=== PATIENT | female | born 1975 | race Caucasian/White ===

== ENCOUNTER 2017-06-28 05:07 | Emergency (ER) | payer BC, OTHER ==
[~2017-06-28] VITALS: Ht 172.7 cm; Wt 64.0 kg
[~2017-06-28 05:07] MED LIST: CITA10TA8 PO; HYDR-2758 PO
--- NOTE | 2017-06-28 05:56 | PHYS DOC ---
Past Medical History Past Medical History: Anxiety, Other Additional Past Medical Histor: back pain; panic attacks Past Surgical History: Tubal ligation, Other Additional Past Surgical Histo: bone spur Alcohol Use: None Drug Use: None Adult General Chief Complaint Chief Complaint: Palpitations HPI HPI Patient is a 41 year old female who presents with complaint of shoulder pain and palpitations. Patient states that she awoke with the symptoms at approximately 4:30 AM this morning. Patient states that she has had similar symptoms in the past and had Holter monitoring completed with no abnormal heart rhythms found. This was ordered by her primary care provider at Dr. Calderon's office. 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 Patient states that she has history of anxiety and had been on citalopram therapy but has not taken this in several months as she states that she has not been having any significant issues with anxiety at this time. Patient states that she has been noticing pain off and on in both shoulders, stating that radiates down into both hands. Patient describes the pain as tingling. Patient denies any associated substernal chest pain, shortness of breath, nausea, or vomiting. Patient does note that she has had intermittent "fluttering" in her chest. Patient denies pain at this time. Patient has not taken any medications for her symptoms. Review of Systems Review of Systems Constitutional: Denies fever or chills [] Eyes: Denies change in visual acuity, redness, or eye pain [] HENT: Denies nasal congestion or sore throat [] Respiratory: Denies cough or shortness of breath [] Cardiovascular: Palpitations, denies substernal chest pain or edema[] GI: Denies abdominal pain, nausea, vomiting, bloody stools or diarrhea [] : Denies dysuria or hematuria [] Musculoskeletal: Intermittent shoulder pain[] Integument: Denies rash or skin lesions [] Neurologic: Denies headache, focal weakness or sensory changes [] Current Medications Current Medications Current Medications Medications (Trade) Dose Ordered Sig/Mike Start Time Stop Time Status Last Admin Dose Admin Aspirin (Children'S Aspirin) 324 mg 1X ONCE 06/28/17 06:00 06/28/17 06:01 DC 06/28/17 06:00 324 MG Lorazepam (Ativan) 0.5 mg 1X ONCE 06/28/17 06:00 9/20/17 06:01 DC 06/28/17 06:00 0.5 MG Sodium Chloride 500 ml @ 500 mls/hr 1X ONCE 06/28/17 06:00 06/28/17 06:59 06/28/17 05:59 500 MLS/HR Allergies Allergies Allergies Coded Allergies Type Severity Reaction Last Updated Verified Sulfa (Sulfonamide Antibiotics) Allergy Intermediate Rash 02/03/16 Yes Physical Exam Physical Exam Constitutional: Alert, afebrile, no acute distress. [] HENT: Normocephalic, atraumatic, bilateral external ears normal, oropharynx moist, no oral exudates, nose normal. [] Eyes: PERRLA, EOMI, conjunctiva normal, no discharge. [] Neck: Normal range of motion, no tenderness, supple, no stridor. [] Cardiovascular:Heart rate regular rhythm, no murmur [] Lungs & Thorax: Bilateral breath sounds clear to auscultation [] Abdomen: Bowel sounds normal, soft, no tenderness, no masses, no pulsatile masses. [] Skin: Warm, dry, no erythema, no rash. [] Back: No tenderness, no CVA tenderness. [] Extremities: No tenderness, no cyanosis, no clubbing, ROM intact, no edema. [] Neurologic: Alert and oriented X 3, normal motor function, normal sensory function, no focal deficits noted. [] Current Patient Data Vital Signs Vital Signs Date Time Temp Pulse Resp B/P (MAP) Pulse Ox O2 Delivery O2 Flow Rate FiO2 06/28/17 05:18 98.2 74 18 119/75 (90) 99 Room Air 98.2 EKG EKG Interpreted by me: Heart rate 72, sinus rhythm, normal intervals, normal axis, no acute ST/T-wave abnormalities present[] Radiology/Procedures Radiology/Procedures Two-view chest x-ray interpreted by me: No infiltrates, no effusions, normal cardiac silhouette[] Course & Med Decision Making Course & Med Decision Making Pertinent Labs and Imaging studies reviewed. (See chart for details) Patient's EKG and chest x-ray appear normal. The patient's symptoms are likely due to acute stress reaction. Lab work at this time is pending at time of sign out. If patient's blood work appears normal, the patient can follow-up with her primary doctor in 2 days for reevaluation. I would also recommend that the patient be referred to Dr. Arredondo of cardiology for further outpatient workup for her palpitations. Care of patient signed out to Dr. Sanabria at 0605. Bhakti Disclaimer Erikon Disclaimer This electronic medical record was generated, in whole or in part, using a voice recognition dictation system. Departure Departure Impression: Primary Impression: Intermittent palpitations Referrals: JOSE CALDERON MD (PCP) PILY LUO MD Jun 28, 2017 05:56
[2017-06-28] MEDS ORDERED: IV NORMAL SALINE 500ML BAG 500 ML IV ONE (06:00)
[2017-06-28] MEDS ORDERED: ASPIRIN CHEWABLE 81 MG TABLET. PO ONE (06:00)
[2017-06-28 06:02] LABS: CREATININE 0.7 mg/dL (0.6-1.0); GFR 93.2; POTASSIUM 3.4 mmol/L (3.5-5.1)
[2017-06-28 06:04] VITALS: BP 106/65
[2017-06-28 06:05] LABS: BASO # 0.1 x10^3/uL (0.0-0.2); BASO % 1 % (0-3); EOS % 3 % (0-3); HEMOGLOBIN 13.5 g/dL (12.0-15.5); LYMPH # 1.7 x10^3/uL (1.0-4.8); LYMPH % 35 % (24-48); MEAN CORPUSCULAR HEMOGLOBIN 31 pg (25-35); MEAN CORPUSCULAR HGB CONC 35 g/dL (31-37); MEAN CORPUSCULAR VOLUME 90 fL (79-100); MONO % 7 % (0-9); NEUT % 54 % (31-73); PLATELET COUNT 170 x10^3/uL (140-400); RED BLOOD COUNT 4.31 x10^6/uL (3.50-5.40); RED CELL DISTRIBUTION WIDTH 13.1 % (11.5-14.5)
--- NOTE | 2017-06-28 06:26 | EKG ---
[facility] [address] [place] [address] Test Date: 2017-06-28 Test Time: 05:15:42 Pat Name: NIXON JONES Department: Room: Gender: F Scale Operator: : 1975 Requested By: PILY LUO Order Number: [id number] Reading MD: Anushka Sprague Measurements Intervals [place] Rate: 72 P: 73 MD: 154 QRS: 54 QRSD: 82 T: 48 QT: 378 QTc: 415 Interpretive Statements SINUS RHYTHM NORMAL EKG Electronically Signed On 07-03-2017 10:47:49 CDT by Anushka Sprague
[2017-06-28 06:35] LABS: BILIRUBIN,URINE NEGATIVE (NEG); GLUCOSE,URINE NEGATIVE (NEG); NITRITE,URINE NEGATIVE (NEG); PH,URINE 5.5; PROTEIN,URINE NEGATIVE (NEG-TRACE); UROBILINOGEN,URINE 0.2 mg/dL (0.2 mg/dL)
[2017-06-28 06:37] LABS: BACTERIA,URINE FEW /HPF (0-FEW); SQUAMOUS EPITHELIAL CELL,UR FEW /LPF
--- NOTE | 2017-06-28 07:09 | RAD ---
Chest, 2 views, 06/28/2017: History: Chest discomfort The heart size and pulmonary vascularity are normal. No pulmonary infiltrates are seen. There is no evidence of pleural fluid. There are multiple calcified discs in the thoracic spine. IMPRESSION: No acute cardiopulmonary abnormality is detected.
== END 2017-06-28 07:11 | disposition home or self-care (01) ==
LOC: ER 05:07
DX: R00.2 Palpitations (principal); M25.511 Pain in right shoulder; M25.512 Pain in left shoulder; R20.2 Paresthesia of skin; F41.0 Panic disorder [episodic paroxysmal anxiety]; Z88.2 Allergy status to sulfonamides; Z79.899 Other long term (current) drug therapy
CPT/HCPCS: 36415; 71020; 80048; 81001; 81025; 83735; 84443; 85025; 93005; 96361; 96374; 99285; J2060; J7040

== ENCOUNTER → 2017-09-26 | Outpatient (CLI) | payer OTHER ==
--- NOTE | 2017-09-26 15:30 | RAD ---
DATE: 09/26/2017 EXAM: DIGITAL DIAGNOSTIC BILATERAL HISTORY: Left breast lump. COMPARISON: None This study was interpreted with the benefit of Computerized Aided Detection (CAD ). FINDINGS: Bilateral CC and MLO views were obtained. In addition, spot compression views of the left breast were obtained. Both breasts are heterogeneously dense. There is an area of the masslike density in the upper and outer aspect of the left breast at posterior depth, corresponding to the BB marker at the site of palpable abnormality. No microcalcifications are seen. The right breast is unremarkable. The axillae are unremarkable. Impression: Masslike density in the upper outer left breast. Further evaluation with ultrasound is recommended. Left breast ultrasound: Sonographic interrogation of the area of palpable abnormality in the upper outer left breast was performed. There is a hypoechoic mass at the 2:00 location of the left breast 6 cm from the nipple, corresponding to the palpable abnormality. This does appear to be lobulated. No significant posterior acoustic shadowing is seen. Minimal internal vascularity is present. This measures 2.0 x 1.7 x 2.6 cm. No other abnormalities are seen. Breast Density: HETERO The breast parenchyma is heterogeneously dense, which could reduce sensitivity of mammography. Breast parenchyma level C. IMPRESSION: Lobulated, solid hypoechoic mass at the 2:00 location of the left breast corresponding to the palpable abnormality. Tissue sampling is recommended. This would be amenable to ultrasound-guided core biopsy. BI-RADS CATEGORY: 4 SUSPICIOUS ABNORMALITY- BIOPSY SHOULD BE CONSIDERED RECOMMENDED FOLLOW-UP: BIO BIOPSY RECOMMENDED PQRS compliance statement: Patient information was entered into a reminder system with a target due date for the next mammogram. Mammography is a sensitive method for finding small breast cancers, but it does not detect them all and is not a substitute for careful clinical examination. A negative mammogram does not negate a clinically suspicious finding and should not result in delay in biopsying a clinically suspicious abnormality. "Our facility is accredited by the [employer] Mammography Program." MTDD
== END | disposition home or self-care (01) ==
LOC: MAMMO 09:59
PROVIDERS: ATTEND Family Medicine
DX: N63.21 Unspecified lump in the left breast, upper outer quadrant (principal)
CPT/HCPCS: 76641; G0204; 77066

== ENCOUNTER → 2017-10-12 | Outpatient (CLI) | payer OTHER | END | disposition home or self-care (01) | LOC: ECHO 10:32 | DX: R00.2 Palpitations (principal) | CPT/HCPCS: 93225; 93226; 93306 ==

== ENCOUNTER 2018-08-06 09:13 | Inpatient (IN) | payer OTHER ==
[2018-08-06] VITALS (10 sets, daily range): BP systolic 90–105; BP diastolic 54–72
[~2018-08-06] VITALS: Ht 172.7 cm; Wt 68.3 kg
[~2018-08-06 09:13] MED LIST changes: +ACYC400T PO; +CITA20TA6 PO; +HYDR-2762 PO; +HYDROmorphone 2 MG/ML VIAL IV PRN; +IV RINGERS,LACTATED 1000ML 1,000 ML IV SCH; +LIDOCAINE 1% PF 2 ML VIAL. ID PRN; +MORPHINE SULFATE 2 MG/ML VIAL. IV PRN; +PROCHLORPERAZINE 10 MG/2 ML VIAL. IV PRN; +fentaNYL PF VIAL 100 MCG/2 ML VIAL IV PRN
[2018-08-06] MEDS ORDERED: METHYLENE BLUE 1% 10 ML VIAL. ONE (09:25)
[2018-08-06] MEDS ORDERED: BUPIVAC MPF-EPI 0.5%-1:200000 30 ML VIAL. ONE (09:25)
[2018-08-06] MEDS ORDERED: LIDOCAINE WITH 8.4% SOD BICARB 3 ML DISP.SYRIN. INJ ONE ×2 (10:00→10:15)
[2018-08-06 10:20] LABS: U PREG PATIENT NEGATIVE (NEG)
[2018-08-06] MEDS ORDERED: ONDANSETRON PF 4 MG/2 ML VIAL. ONE ×2 (10:28→12:43)
[2018-08-06] MEDS ORDERED: FAMOTIDINE 20 MG/2 ML VIAL ONE (10:28)
[2018-08-06] MEDS ORDERED: MIDAZOLAM HCL/PF 2 MG/2 ML VIAL. ONE (10:28)
[2018-08-06] MEDS ORDERED: PROPOFOL 20 ML IV ONE (10:28)
[2018-08-06] MEDS ORDERED: LIDOCAINE 2% PF Vial for OR 5 ML VIAL. ONE (10:28)
[2018-08-06] MEDS ORDERED: DEXAMETHASONE SOD PHOS 20 MG/5 ML VIAL. ONE (10:28)
[2018-08-06] MEDS ORDERED: fentaNYL PF VIAL 100 MCG/2 ML VIAL ONE ×3 (10:28→12:54)
[2018-08-06] MEDS ORDERED: PROPOFOL 50 ML IV ONE (11:39)
[2018-08-06] MEDS ORDERED: SEVOFLURANE 61 TO 120 MINUTES. IH ONE (12:26)
[2018-08-06] MEDS ORDERED: HYDROmorphone 2 MG/ML VIAL IV PRN (12:45)
[2018-08-06] MEDS ORDERED: diphenhydrAMINE HCL 25 MG CAPSULE PO PRN (12:45)
[2018-08-06] MEDS ORDERED: ONDANSETRON PF 4 MG/2 ML VIAL. IV PRN (12:45)
[2018-08-06] MEDS ORDERED: 0.9 % SODIUM CHLORIDE 10 ML DISP.SYRIN. IV PRN (12:45)
[2018-08-06] MEDS ORDERED: PROCHLORPERAZINE 10 MG/2 ML VIAL. ONE (12:47)
[2018-08-06] MEDS ORDERED: KETOROLAC 30 MG/ML VIAL. ONE (12:49)
--- NOTE | 2018-08-06 12:52 | PDOC ---
BRIEF OPERATIVE NOTE Date: Aug 06, 2018 Pre-Op Diagnosis invasive carcinoma left breast Post-Op Diagnosis same Procedure Performed SLN biopsy lumpectomy UOQ left breast Surgeon Esteban Anesthesia Type: General Blood Loss 50cc IV Fluid 1000cc Specimens Obtained SLN peripheral tissue lumpectomy UOQ Findings negative SLN, negative margin of concern Complications none MONTANA FELDMAN MD Aug 06, 2018 12:52
[2018-08-06] MEDS: fentaNYL PF VIAL 100 MCG/2 ML VIAL IV PRN ×2 (13:06→13:30)
[2018-08-06] MEDS ORDERED: KETOROLAC 30 MG/ML VIAL. IV ONE (13:15)
--- NOTE | 2018-08-06 13:19 | OP ---
DATE OF SURGERY: 08/06/2018 PREOPERATIVE DIAGNOSIS: Invasive carcinoma, left breast. POSTOPERATIVE DIAGNOSIS: Invasive carcinoma, left breast. PROCEDURE: 1. [place] lymph node biopsy. 2. Lumpectomy upper outer quadrant, left breast. SURGEON: Lorne Feldman MD ANESTHESIA: General LMA. BLOOD LOSS: 50. INTRAVENOUS FLUIDS: 1 liter. INDICATIONS: The patient is a 43-year-old with a previously excised malignant mass, which had involved margins. She is brought for sentinel node biopsy and lumpectomy. OPERATIVE FINDINGS: The sentinel node was negative. A tissue specimen from the periphery of the process was sent and found to be negative for cancer. DESCRIPTION OF PROCEDURE: The patient was brought to the operating suite, given a general LMA and the left breast, arm and chest were prepped and draped in the usual sterile fashion. A 5 mL of Lymphazurin were injected intradermally circumareolarly in the upper outer quadrant and the breast was gently massaged. Using the C-Trak to help localize activity in the axilla, a small incision was infiltrated with local anesthetic and incised. Dissection was carried down to a blue "hot" node, which was harvested and sent to pathology. The previous upper outer quadrant incision was excised after localizing with 0.5% Marcaine with epinephrine. The skin and underlying process from the previous biopsy site was then removed en bloc. A piece of tissue from the periphery was sent for frozen section and proved to be uninvolved by the malignant process. A 19-Pashto round Jorje drain was threaded from the axillary incision down into the breast and out an inferior lateral stab wound, sewn to the skin with a silk stitch. When hemostasis was present and a correct sponge count obtained, the breast was approximated with interrupted 3-0 Vicryl, skin closed with a subcuticular 4-0 Monocryl. Sterile dressings applied. The patient awakened from her anesthetic and taken to the recovery room in satisfactory condition. LORNE FELDMAN MD DR: SUGEY/jo JOB#: [id number] / [id number]
[2018-08-06] MEDS ORDERED: POTASSIUM CL 20MEQ-0.45% NACL 1,000 ML IV SCH (14:00)
--- NOTE | 2018-08-06 15:04 | RAD ---
Indication: Left breast mass. Patient presents for sentinel node injection. TECHNIQUE: After expanding risks and benefits of the procedure, informed consent was obtained. The left breast periareolar skin was prepped and draped using usual sterile procedure. Equal aliquots of 4 parts of 1.3 mCi of technetium 99 M sulfur colloid was injected in all 4 quadrants of the breast. Findings/ impression: Uncomplicated left breast sentinel node injection. Electronically signed by: Keyon Thomason DO (08/06/2018 3:00 PM) [facility]
[2018-08-06] MEDS: oxyCODONE/APAP 5/325 1 TAB TABLET PO PRN ×3 (17:09→21:40)
[2018-08-06] MEDS: DOCUSATE SODIUM 100 MG CAPSULE. PO SCH (21:39)
[2018-08-07] MEDS: oxyCODONE/APAP 5/325 1 TAB TABLET PO PRN ×2 (03:58→08:52)
[2018-08-07 05:50] VITALS: BP 97/53
[2018-08-07] MEDS ORDERED: ENOXAPARIN 40 MG/0.4 ML SYRINGE. SQ SCH (08:00)
--- NOTE | 2018-08-07 08:31 | DISCH ---
DISCHARGE INSTRUCTIONS Condition on Discharge Condition on Discharge: Stable Activity After Discharge Activity Instructions for Disc: Activity as tolerated Lifting Instructions after Dis: No heavy lifting, No pulling or pushing, Do not lift >10 pounds Driving Instructions after Dis: Do not drive Diet after Discharge Diet after Discharge: Regular Wound Incision Care Other wound/incision instructi: drain care as instructed Contacting the after DC Call your doctor for: Concerns you may have Follow-Up Follow up with: Dr Orellana MondayAug 10, call to schedule [phone] MICHEL JUAREZ APRN Aug 07, 2018 08:31
[2018-08-07] MEDS ORDERED: OXYC1TAB7 PO (08:32)
--- NOTE | 2018-08-07 08:34 | PDOC3 ---
Discharge Summary Visit Information Date of Admission: Aug 06, 2018 Date of Discharge: Aug 07, 2018 Admitting Diagnosis: Invasive carcinoma, left breast. Final Diagnosis Invasive carcinoma, left breast. Brief Hospital Course Allergies Allergies Coded Allergies Type Severity Reaction Last Updated Verified Sulfa (Sulfonamide Antibiotics) Allergy Intermediate Rash 08/06/18 Yes Vital Signs Vital Signs Date Time Temp Pulse Resp B/P (MAP) Pulse Ox O2 Delivery O2 Flow Rate FiO2 08/07/18 05:50 97.8 63 16 97/53 (68) 97.8 08/06/18 23:03 97 Room Air 08/06/18 13:49 2 Lab Results Laboratory Tests Test 08/06/18 09:00 Urine Test Negative (NEG) Laboratory Tests Test 08/06/18 09:00 Urine Test Negative (NEG) Brief Hospital Course Ms. Whitt is a 43 old female who presented with eft breast cancer, she underwent 1. [place] lymph node biopsy. 2. Lumpectomy upper outer quadrant, left breast. Postoperatively tolerating diet, ambulating, and pain managed. Will discharge home with drain and follow up Monday Discharge Information Condition at Discharge: Stable Follow Up: Weeks Disposition/Orders: D/C to Home Scheduled Citalopram Hydrobromide (Celexa) 10 Mg Tablet, 1 TAB PO DAILY, #30 Ref 2 ( Reported) Entered as Reported by: SARA DEJESUS on 02/03/16930 Last Taken: Unknown Dose on 05/06/18 Last Action: Last Taken Edited on 945 by DONOVAN FOX Citalopram Hydrobromide (Citalopram Hbr) 20 Mg Tablet, 1 TAB PO DAILY, #30 Ref 5 (Reported) Entered as Reported by: SHANDRA ESTRELLA on 08/03/18 135 Last Action: New Order on 08/03/181354 by SHANDRA ESTRELLA Scheduled PRN Acyclovir (Acyclovir) 400 Mg Tablet, 2 TAB PO PRN TID PRN for fever blister, # 60 Ref 3 (Reported) Entered as Reported by: SHANDRA ESTRELLA on 08/03/181355 Last Taken: Unknown Dose on 08/03/18 Last Action: Last Taken Edited on 08/06/18945 by DONOVAN FOX Oxycodone Hcl/Acetaminophen (Oxycodone-Acetaminophen 5-325) 1 Each Tablet, 1 TAB PO PRN Q4HRS PRN for MILD PAIN, 1ST CHOICE, #30 Ref 0 Prescribed by: Michel Smith on 08/07/18 0832 Discontinued Medications Hydrocodone Bit/Acetaminophen (Hydrocodone-Apap 5-325 ) 1 Each Tablet, 1 TAB PO PRN Q6HRS PRN for PAIN, Ref 0 (Reported) Entered as Reported by: SARA DEJESUS on 02/03/16 0931 Last Action: Discontinued on 08/06/18 0947 by DONOVAN FOX Hydrocodone Bit/Acetaminophen (Hydrocodone-Apap 7.5-325 ) 1 Each Tablet, 1 TAB PO PRN Q4-6HRS PRN for PAIN, Ref 0 (Reported) Entered as Reported by: SHANDRA ESTRELLA on 08/03/181354 Last Action: New Order on 08/03/181354 by MICHEL RUBI APRN Aug 07, 2018 08:34
[2018-08-07] MEDS: DOCUSATE SODIUM 100 MG CAPSULE. PO SCH (08:52)
[2018-08-07 09:20] VITALS: BP 105/59
--- NOTE | 2018-08-09 10:08 | PATHOLOGY ---
[facility] Accession Number: [id number] . 01 Material submitted: . PART A: LEFT AXILLARY SENTINEL NODE - FS PART B: PERIPHERAL SPECIMAN - FS PART C: LEFT BREAST OPERATIVE UPPER OUTER QUADRANT . 01 Clinical history: . Left breast lumpectomy . 02 Diagnosis: A. Lymph node, left axillary sentinel node hot and blue: - Negative for tumor (0/1). . B. Breast tissue, peripheral specimen for frozen: - Sclerosing adenosis with associated calcifications. . C. Segment of skin and breast tissue and focally attached small foci of skeletal muscle tissue, left breast lumpectomy: - Minute focus of residual invasive high grade ductal carcinoma identified within region of previous biopsy site, measuring 1 mm. - Focus of residual invasive carcinoma approximately 0.7 cm from the closest deep and lateral margins of resection. - Previous biopsy site changes comprised of biopsy cavity with focal coagulative necrosis, fat necrosis, reactive fibrosis, and foreign body granulomatous reaction of surrounding breast tissue. - Proliferative fibrocystic changes with focal moderate ductal epithelial hyperplasia. - Sclerosing adenosis, multifocal. - Fibroadenomatous change, focal. - Microcalcifications identified in areas of fibrocystic change and sclerosing adenosis. . (JPM:mml; 08/08/18) [facility]/08/08/2018 . 02 Comment: Sections of the left breast lumpectomy show previous biopsy site changes and a minute focus of residual invasive high grade ductal carcinoma measuring 1 mm in greatest dimension. The margins of resection are negative for tumor. . The sentinel lymph node is examined at multiple levels and with an immunoperoxidase stain for AE1/AE3 which yields the following results: . AE1/AE3 (A1): Negative for tumor . Incorporating the biopsy results with the lumpectomy findings, the pathologic stage is pT2, pN0. . (JPM:mml; 08/08/18) . 02 Electronically signed: . Kristian Baxter MD, Pathologist NPI- [id number] . 01 Gross description: . A. The specimen is received fresh for intraoperative consultation and is designated "left axillary sentinel node, hot and blue". This consists of a dark blue discolored lymph node with focal attached yellow-red perinodal fibroadipose tissue. The specimen measures up to 1.8 x 1.3 x 0.9 cm. The specimen is bisected. The central portion of the lymph node is yellow and fatty. This is surrounded by a dark blue discolored rim of alysha cortex. This is submitted in its entirety for frozen section as FSA1. The tissue remaining from the frozen section is submitted for permanent sections as A1. . B. The specimen is received fresh for intraoperative consultation and is designated "peripheral specimen fresh for frozen". This consists of a segment of pale yellow mendes-white soft tissue measuring up to 1.4 x 0.8 x 0.2 cm. This is submitted for frozen section without sectioning as FSB1. The tissue remaining from frozen section is submitted for permanent sections as B1. (JPM:[facility] 08/06/2018) . C. The specimen is received in formalin, labeled "Mariann Whitt, left breast operative upper outer quadrant silk stitch at superior aspect" and consists of a 47 g breast lumpectomy specimen oriented with a black stitch (superior). The specimen is disrupted showing a previous biopsy cavity (approximately 4.5 x 3.5 x 3.0 cm). The breast tissue measures 7.3 cm S-I, 5.5 cm L-M, and 2.6 cm A-P with an anterior skin ellipse measuring 3.9 x 1.1 cm. The skin ellipse displays a well healed previous biopsy scar. The specimen is inked as follows: Superior-blue, inferior-green, lateral-yellow, medial-red, and posterior-black. It is sectioned from superior to inferior into 17 slices to reveal previous biopsy changes but no grossly identifiable residual tumor. The specimen was placed in formalin at 11:55 AM on 08/06/18 and the total formalin fixation time is greater than 6 hours but less than 72 hours. Butadiene Converter Helper alternating sections are submitted as follows: . C1: Slice 1 superior, perpendicular C2: Slice 3, intact C3-C4: Slice 5, bisected L-M C5-C7: Slice 7, bisected L-M (fragmented into 3 segments) C8-C9: Slice 9, bisected L-M (fragmented into 3 segments) C10-C12: Slice 11, bisected L-M (fragmented into 3 segments) C13-C15: Slice 13, bisected L-M (further bisected into 4 segments) C16-C17: Slice 15, bisected L-M C18-C19: Slice 17 inferior, perpendicular (SDY; 08/07/2018) . INTRAOPERATIVE CONSULTATION WITH FROZEN SECTION: A. Lymph node, "left axillary sentinel node hot and blue": - Negative for tumor. - The results are reported to Dr. Orellana in the operating room. . B. Breast tissue, peripheral specimen fresh for frozen section: - Sclerosing adenosis. No evidence of malignancy. - The results are reported to Dr. Orellana in the operating room. . (JPM:[facility] 08/06/2018) . . Intraoperative Consultation with Frozen Section performed at [facility], [address] [place] [id number]. /QTP . 02 Pathologist provided ICD-10: C50.412, N60.22, N60.12, N60.32 . 02 CPT . 212000, 108997, 254806, Q99770, 907968, 472020 Specimen Comment: A courtesy copy of this report has been sent to Specimen Comment: [phone], . Specimen Comment: Report sent to / DR CALDERON Performed at: 01 [facility] [address], [place] [id number] MD Joon Cuellar MD Phone: [phone] Performed at: [address] [id number] MD Kristian Baxter MD Phone: [phone]
== END 2018-08-07 10:30 | disposition home or self-care (01) | DRG 581 ==
LOC: SURG 09:13 → 3 NORTH 13:52
PROVIDERS: ADMIT Surgery; ATTEND Surgery
PROC: 07B60ZX Excision of Left Axillary Lymphatic, Open Approach, Diagnostic (ICD-10-PCS; principal; 2018-08-06 11:15)
PROC: 0HBU0ZZ Excision of Left Breast, Open Approach (ICD-10-PCS; 2018-08-06 11:15)
DX: C50.912 Malignant neoplasm of unspecified site of left female breast (principal); Z88.2 Allergy status to sulfonamides
CPT/HCPCS: 38792; 81025; 88305; 88307; 88331; 88342; 96374; A7015; A9541; J0690; J0780; J1100; J1170; J1650; J1885; J2001; J2250; J2405; J2704; J3010; J3490; J7120; Q9968

== ENCOUNTER 2018-09-11 08:09 | Day surgery (SDC) | payer OTHER ==
[~2018-09-11] VITALS: Ht 172.7 cm; Wt 67.1 kg
[~2018-09-11 08:09] MED LIST changes: +BUPIVAC MPF-EPI 0.5%-1:200000 30 ML VIAL. INJ ONE; +BUPIVACAINE 0.5% 50 ML VIAL. INJ ONE; +BUPIVACAINE MPF 0.5% 30 ML VIAL. IJ ONE; +HEPARIN SODIUM 5,000 UNIT in IV NORMAL SALINE 500ML BAG 500 ML IRR ONE; -HYDR-2758 PO; +HYDR-2761 PO; -HYDR-2762 PO; +HYDR-2765 PO; +NEOMY/BACITR/POLYMYXIN OINT PACKET. TP ONE; +OXYC1TAB7 PO
[2018-09-11] MEDS ORDERED: fentaNYL PF VIAL 250 MCG/5 ML VIAL ONE (08:44)
[2018-09-11] MEDS ORDERED: MIDAZOLAM HCL/PF 2 MG/2 ML VIAL. ONE (08:44)
[2018-09-11] MEDS ORDERED: PROPOFOL 20 ML IV ONE (08:44)
[2018-09-11] MEDS ORDERED: LIDOCAINE 2% PF Vial for OR 5 ML VIAL. ONE (08:44)
[2018-09-11 09:42] LABS: U PREG PATIENT NEGATIVE (NEG)
[2018-09-11] MEDS ORDERED: ONDANSETRON PF 4 MG/2 ML VIAL. ONE (10:29)
[2018-09-11] MEDS ORDERED: DEXAMETHASONE SOD PHOS 20 MG/5 ML VIAL. ONE (10:29)
[2018-09-11] MEDS ORDERED: PROCHLORPERAZINE 10 MG/2 ML VIAL. ONE (10:45)
[2018-09-11] MEDS ORDERED: fentaNYL PF VIAL 100 MCG/2 ML VIAL ONE (10:45)
[2018-09-11] MEDS ORDERED: SEVOFLURANE 31 TO 60 MINUTES. IH ONE (10:53)
--- NOTE | 2018-09-11 10:55 | DISCH ---
DISCHARGE INSTRUCTIONS Condition on Discharge Condition on Discharge: Stable Activity After Discharge Activity Instructions for Disc: Activity as tolerated, Avoid exertion Lifting Instructions after Dis: No heavy lifting Driving Instructions after Dis: Do not drive today Diet after Discharge Diet after Discharge: Regular Wound Incision Care Wound/Incision Care: Ice to area for comfort, Keep wound/cast CDI Contacting the DRNigel after DC Call your doctor for: Concerns you may have Follow-Up Follow up with: Esteban next week MONTANA FELDMAN MD Sep 11, 2018 10:55
--- NOTE | 2018-09-11 11:03 | PDOC ---
BRIEF OPERATIVE NOTE Date: Sep 11, 2018 Pre-Op Diagnosis needs venous access for chemotherapy Post-Op Diagnosis same Procedure Performed placement right subclavian power port Surgeon Esteban Anesthesia Type: General (LMA) Blood Loss 10cc IV Fluid 300cc Specimens Obtained none Findings tip of catheter in the SVC without evidence of pneumothorax Complications none MONTANA FELDMAN MD Sep 11, 2018 11:03
[2018-09-11] MEDS ORDERED: SENN1TAB70 PO (11:08)
[2018-09-11] MEDS ORDERED: HYDROcodone/APAP 7.5/325MG 1 TAB TABLET PO ONE (11:15)
--- NOTE | 2018-09-11 11:26 | RAD ---
Portable chest, 09/11/2018: HISTORY: Check Port-A-Cath placement Comparison is made to a study from 06/28/2017. A right Port-A-Cath has been inserted extending to the level of the atriocaval junction. The heart size and pulmonary vascularity are normal. No pulmonary infiltrate is seen. There is no evidence of pneumothorax or pleural fluid. IMPRESSION: 1. A right Port-A-Cath has been inserted in satisfactory position. 2. No acute cardiopulmonary abnormality is detected. Electronically signed by: Yossi Alaniz MD (09/11/2018 11:22 AM) [facility]
[2018-09-11 11:30] VITALS: BP 110/60
--- NOTE | 2018-09-11 12:57 | OP ---
DATE OF SURGERY: 09/11/2018 PREOPERATIVE DIAGNOSIS: Needs venous access for chemotherapy. POSTOPERATIVE DIAGNOSIS: Needs venous access for chemotherapy. PROCEDURE: Placement of a right subclavian PowerPort. SURGEON: Lorne Feldman MD ANESTHESIA: General LMA. ESTIMATED BLOOD LOSS: 10 mL. INTRAVENOUS FLUID: 300. INDICATIONS: The patient is a 43-year-old with triple negative breast cancer, needing access for adjuvant chemotherapy. DESCRIPTION OF PROCEDURE: The patient was brought to the operating suite, given a general LMA, and the right chest was prepped and draped in usual sterile fashion. With the bed in Trendelenburg, 0.5% plain Marcaine was infiltrated a fingerbreadth below the clavicle at the junction of the medial two-thirds, lateral third. A small incision made and a seeker needle used to access the subclavian vein. Under fluoroscopic observation, guidewire was advanced into the superior vena cava and then the needle removed. Pocket incision infiltrated with local anesthetic, incised and developed. Catheter laid on the patient's chest and with fluoroscopy as a guide, cut to an appropriate length. The catheter was then tunneled from the insertion site to the pocket site where it was attached to the reservoir, and the reservoir was seated in the pocket. Again, with the patient in Trendelenburg and with fluoroscopy for observation, the dilator and sheath were passed over the wire. The wire was removed. The dilator was removed, and the catheter was threaded through the sheath and the sheath was then removed. A good flow into and out of the catheter. Table was taken out of Trendelenburg, pocket incision closed with interrupted 3-0 Vicryl in the subcutaneous tissue. Skin incisions closed with subcuticular 4-0 Monocryl and Steri-Strips. Sterile dressings applied. Prior to dressing the wound, the port was flushed with heparinized saline. Postoperative upright chest x-ray showed the tip of the catheter to reside in superior vena cava without evidence of a pneumothorax. LORNE FELDMAN MD DR: SUGEY/jo JOB#: [id number] / [id number] WILEY Hannah MD
--- NOTE | 2018-09-14 10:12 | RAD ---
Port-A-Cath insertion under fluoroscopy 09/11/2018 CLINICAL HISTORY: Central line placement. Fluoroscopic assistance was provided during placement of a right subclavian Bscqux-p-Grxu type catheter. The total fluoroscopic time is not given. 4 digital spot radiographs of the upper chest were obtained and demonstrate interval placement of a right subclavian Npcpzl-k-Mbqo type catheter with its tip extending to overlie the superior vena cava. IMPRESSION: Fluoroscopic assistance during placement of a right subclavian Iwudzy-w-Uksu type catheter as outlined above. Electronically signed by: Bill Mosley MD (09/14/2018 10:08 AM) [id number]
== END 2018-09-11 11:44 | disposition home or self-care (01) ==
LOC: SURG 08:09
PROVIDERS: ATTEND Surgery
DX: C50.912 Malignant neoplasm of unspecified site of left female breast (principal); M19.90 Unspecified osteoarthritis, unspecified site; F41.9 Anxiety disorder, unspecified; F17.210 Nicotine dependence, cigarettes, uncomplicated; Z88.2 Allergy status to sulfonamides; Z98.51 Tubal ligation status; Z90.710 Acquired absence of both cervix and uterus
CPT/HCPCS: 36561; 71045; 77001; 81025; A7015; C1788; J0690; J0780; J1100; J1644; J2001; J2250; J2405; J2704; J3010; J3490; J7040; 36556

== ENCOUNTER → 2018-09-13 | Outpatient (CLI) | payer OTHER ==
[2018-09-11 11:30] VITALS: BP 110/60
[~2018-09-13] MED LIST changes: -BUPIVAC MPF-EPI 0.5%-1:200000 30 ML VIAL. INJ ONE; -BUPIVACAINE 0.5% 50 ML VIAL. INJ ONE; -BUPIVACAINE MPF 0.5% 30 ML VIAL. IJ ONE; -HEPARIN SODIUM 5,000 UNIT in IV NORMAL SALINE 500ML BAG 500 ML IRR ONE; -HYDROmorphone 2 MG/ML VIAL IV PRN; -IV RINGERS,LACTATED 1000ML 1,000 ML IV SCH; -LIDOCAINE 1% PF 2 ML VIAL. ID PRN; -MORPHINE SULFATE 2 MG/ML VIAL. IV PRN; -NEOMY/BACITR/POLYMYXIN OINT PACKET. TP ONE; -PROCHLORPERAZINE 10 MG/2 ML VIAL. IV PRN; +SENN1TAB70 PO; -fentaNYL PF VIAL 100 MCG/2 ML VIAL IV PRN
--- NOTE | 2018-09-13 11:45 | CARD ---
MR#: [id number] Date of Study: 09/13/2018 Ordering Physician: WILEY ESPANA, Referring Physician: WILEY ESPANA Tech: Leslie Edwards RDCS APPROVED REPORT EXAM: Two-dimensional and M-mode echocardiogram with Doppler and color Doppler. Other Information Quality : Good INDICATION LV Function:Systolic Breast Cancer-Starting Chemo 09/13/18 2D DIMENSIONS RVDd2.2 (2.9-3.5cm)Left Atrium(2D)3.0 (1.6-4.0cm) IVSd0.8 (0.7-1.1cm)Aortic Root(2D)2.5 (2.0-3.7cm) LVDd4.2 (3.9-5.9cm)LVOT Diameter2.0 (1.8-2.4cm) PWd0.8 (0.7-1.1cm)LVDs2.8 (2.5-4.0cm) FS (%) 33.7 %SV50.1 ml LVEF(%)62.8 (>50%) Aortic Valve AoV Peak Mark.122.2cm/sAoV VTI22.0cm AO Peak GR.6.0mmHgLVOT Peak Mark.107.7cm/s AO Mean GR.3mmHgAVA (VMAX)2.78cm2 RUFUS (VTI)3.00cm2 Mitral Valve MV E Smcsxxzj03.0cm/sMV DECEL OJNF530tw MV A Vlphaslr27.1cm/sE/A Ratio1.2 Tricuspid Valve TR P. Xzpnabml114ka/sRAP PGDTTNAD8igSh TR Peak Gr.46lxEmQTMM31hhMa Pulmonary Vein S1 Lmxtqvyn77.0cm/sD2 Bdfqyejt84.8cm/s LEFT VENTRICLE The left ventricle is normal size. There is normal left ventricular wall thickness. The left ventricu lar systolic function is normal and the ejection fraction is within normal range. The Ejection Fracti on is 60-65%. There is normal LV segmental wall motion. The left ventricular diastolic function and f illing is normal for age. RIGHT VENTRICLE The right ventricle is normal size. The right ventricular systolic function is normal. ATRIA The left atrium size is normal. The right atrium size is normal. The interatrial septum is intact wit h no evidence for an atrial septal defect or patent foramen ovale as noted on 2-D or Doppler imaging. AORTIC VALVE The aortic valve is normal in structure and function. Doppler and Color Flow revealed no significant aortic regurgitation. There is no significant aortic valvular stenosis. MITRAL VALVE The mitral valve is normal in structure and function. There is no evidence of mitral valve prolapse. There is no mitral valve stenosis. Doppler and Color-flow revealed trace mitral regurgitation. TRICUSPID VALVE The tricuspid valve is normal in structure and function. Doppler and Color Flow revealed physioogic t ricuspid regurgitation. The PA pressure was estimated at 18 mmHg. There is no tricuspid valve stenosi s. PULMONIC VALVE The pulmonic valve is not well visualized. Doppler and Color Flow revealed trace pulmonic valvular re gurgitation. There is no pulmonic valvular stenosis. GREAT VESSELS The aortic root is normal in size. The ascending aorta is normal in size. The IVC is normal in size a nd collapses >50% with inspiration. PERICARDIAL EFFUSION There is no evidence of significant pericardial effusion. Critical Notification Critical Value: No <Conclusion> The left ventricular systolic function is normal and the ejection fraction is within normal range. Th e Ejection Fraction is 60-65%. There is normal LV segmental wall motion. Doppler and Color Flow revealed physioogic tricuspid regurgitation. The PA pressure was estimated at 18 mmHg. Signed by : Manjit Amador, Electronically Approved : 09/13/2018 11:44:03
== END | disposition home or self-care (01) ==
LOC: ECHO 10:36
PROVIDERS: ATTEND Internal Medicine Hematology & Oncology
DX: I36.1 Nonrheumatic tricuspid (valve) insufficiency (principal); Z85.3 Personal history of malignant neoplasm of breast
CPT/HCPCS: 93306

== ENCOUNTER 2018-10-04 16:38 | Emergency (ER) | payer OTHER ==
[~2018-10-04] VITALS: Ht 172.7 cm; Wt 68.0 kg
[2018-10-04] MEDS ORDERED: ONDANSETRON PF 4 MG/2 ML VIAL. IV ONE (18:00)
[2018-10-04] MEDS ORDERED: IV NORMAL SALINE 1000ML BAG 1,000 ML IV ONE (18:00)
[2018-10-04 18:11] LABS: BILIRUBIN,URINE NEGATIVE (NEG); CLARITY,URINE CLEAR; COLOR,URINE YELLOW; NITRITE,URINE NEGATIVE (NEG); PH,URINE 5.5; PROTEIN,URINE NEGATIVE (NEG-TRACE); UROBILINOGEN,URINE 0.2 mg/dL (0.2 mg/dL)
[2018-10-04 18:15] LABS: BASO % 1 % (0-3); EOS % 0 % (0-3); HEMATOCRIT 35.9 % (36.0-47.0); HEMOGLOBIN 12.4 g/dL (12.0-15.5); LYMPH # 0.2 x10^3/uL (1.0-4.8); LYMPH % 13 % (24-48); MEAN CORPUSCULAR HEMOGLOBIN 32 pg (25-35); MEAN CORPUSCULAR HGB CONC 35 g/dL (31-37); MEAN CORPUSCULAR VOLUME 91 fL (79-100); MONO # 0.2 x10^3/uL (0.0-1.1); MONO % 14 % (0-9); NEUT # 1.1 x10^3uL (1.8-7.7); NEUT % 72 % (31-73); PLATELET COUNT 152 x10^3/uL (140-400); RED BLOOD COUNT 3.95 x10^6/uL (3.50-5.40); RED CELL DISTRIBUTION WIDTH 13.3 % (11.5-14.5)
[2018-10-04 18:17] LABS: WHITE BLOOD COUNT 1.5 x10^3/uL (4.0-11.0)
[2018-10-04 18:20] LABS: PROTHROMBIN TIME PATIENT 12.4 SEC (11.7-14.0)
[2018-10-04 18:21] LABS: BACTERIA,URINE MODERATE /HPF (0-FEW); SQUAMOUS EPITHELIAL CELL,UR FEW /LPF
[2018-10-04 18:23] LABS: CALCIUM 9.2 mg/dL (8.5-10.1); CREATININE 0.7 mg/dL (0.6-1.0); GFR 92.2; POTASSIUM 3.9 mmol/L (3.5-5.1)
[2018-10-04 18:35] LABS: ALBUMIN 3.2 g/dL (3.4-5.0); ALBUMIN/GLOBULIN RATIO 0.8 (1.0-1.7); TOTAL BILIRUBIN 0.2 mg/dL (0.2-1.0)
[2018-10-04 18:46] LABS: % BANDS 17 % (0-9); % BASOS 1 % (0-3); % LYMPHS 10 % (24-48); % METAS 1 % (0-0); % MONOS 17 % (0-10); % MYELOS 1 % (0-0); % SEGS 53 % (35-66); PLT ESTIMATE ADEQUATE (ADEQUATE); TOXIC GRANULATION MARKED
[2018-10-04 19:15] VITALS: BP 107/66
[2018-10-04] MEDS ORDERED: IOHEXOL 300 MG/ML 100ML VIAL. IV ONE (19:15)
[2018-10-04] MEDS ORDERED: CONTRAST GIVEN. MC PRN (19:30)
--- NOTE | 2018-10-04 19:37 | RAD ---
EXAM: Chest, single view. HISTORY: Fever COMPARISON: 09/19/2018 FINDINGS: A frontal view of the chest is obtained. There is no infiltrate, pleural effusion or pneumothorax. The heart is normal in size. There is a port catheter with the tip in the superior vena cava. IMPRESSION: No acute pulmonary finding. Electronically signed by: Marcela Becker MD (10/04/2018 7:32 PM) [id number]
[2018-10-04 19:38] LABS: INFLUENZA A PATIENT NEGATIVE (NEGATIVE); INFLUENZA B PATIENT NEGATIVE (NEGATIVE)
[2018-10-04] MEDS ORDERED: LEVO750T31 PO (19:52)
--- NOTE | 2018-10-04 20:16 | RAD ---
INDICATION: fever, cramping, vomiting, [id number] 75ml, prior sent COMPARISON: September 2011 TECHNIQUE: Axial CT images obtained through the abdomen and pelvis with contrast. One or more of the following individualized dose reduction techniques were utilized for this examination: 1. Automated exposure control; 2. Adjustment of the mA and/or kV according to patient size; 3. Use of iterative reconstruction technique. FINDINGS: Abdominal aorta is not grossly aneurysmal. Atherosclerotic disease is identified. No intrahepatic bile duct dilation. Hepatic parenchyma is borderline low attenuation. No peripancreatic fluid collection. Spleen mildly prominent. Subcentimeter low-density left renal lesion. Commonly seen finding and most commonly from cysts although too small to characterize. Urinary bladder is partially distended. Mild prominence of bilateral extrarenal pelvis. Uterus visualized. Small fat-containing umbilical hernia. Calcification is seen within the soft tissues of the pelvis as well as multiple phleboliths. No dilated loops of bowel to suggest obstruction. Mild fluid-filled prominence of the terminal ileum. The appendix is not well seen given the lack of contrast and loops of bowel within the region. IMPRESSION: 1. Mild prominence of the bilateral extrarenal pelvis. 2. No definite evidence of bowel obstruction. Electronically signed by: El Nicole MD (10/04/2018 8:12 PM) [facility]
--- NOTE | 2018-10-04 20:55 | PHYS DOC ---
Past Medical History Past Medical History: Anxiety, Cancer, Other Additional Past Medical Histor: back pain; panic attacks, BREAST CA Past Surgical History: Tubal ligation, Other Additional Past Surgical Histo: bone spur Alcohol Use: None Drug Use: None Adult General Chief Complaint Chief Complaint: FEVER HPI HPI Patient is a 43 year old [female who presents with nausea and fatigue chills fever of 101 for the last 2 days no dysuria no cough no vomiting chest nausea no abdominal pain gets chemo last on seven days ago. hx of breast cancer. Review of Systems Review of Systems Constitutional: Eyes: Denies change in visual acuity, redness, or eye pain [] HENT: Denies nasal congestion or sore throat [] Respiratory: Denies cough or shortness of breath [] Cardiovascular: No additional information not addressed in HPI [] GI: Denies abdominal pain, bloody stools or diarrhea [] : Denies dysuria or hematuria [] Musculoskeletal: Denies back pain or joint pain [] Integument: Denies rash or skin lesions [] Neurologic: Denies headache, focal weakness or sensory changes [] Endocrine: Denies polyuria or polydipsia [] All other systems were reviewed and found to be within normal limits, except as documented in this note. Current Medications Current Medications Current Medications Medications (Trade) Dose Ordered Sig/Mike Start Time Stop Time Status Last Admin Dose Admin Info (CONTRAST GIVEN -- Rx MONITORING) 1 each PRN DAILY PRN 10/04/18 19:30 10/06/18 19:29 Iohexol (Omnipaque 300 Mg/ml) 75 ml 1X ONCE 10/04/18 19:15 10/04/18 19:16 DC 10/04/18 19:31 75 ML Levofloxacin (Levaquin) 750 mg 1X ONCE 10/04/18 20:30 10/04/18 20:31 DC 10/04/18 20:43 750 MG Ondansetron HCl (Zofran) 4 mg 1X ONCE 10/04/18 18:00 10/04/18 18:01 DC 10/04/18 19:08 4 MG Sodium Chloride 1,000 ml @ 1,000 mls/hr 1X ONCE 10/04/18 18:00 10/04/18 18:59 DC 10/04/18 18:49 1,000 MLS/HR Allergies Allergies Allergies Coded Allergies Type Severity Reaction Last Updated Verified Sulfa (Sulfonamide Antibiotics) Allergy Intermediate Rash 09/11/18 Yes Physical Exam Physical Exam Constitutional: Well developed, well nourished, no acute distress, non-toxic appearance. [] HENT: Normocephalic, atraumatic, bilateral external ears normal, oropharynx dry , no oral exudates, nose normal. [] Eyes: PERRLA, EOMI, conjunctiva normal, no discharge. [] Neck: Normal range of motion, no tenderness, supple, no stridor. [] Cardiovascular:Heart rate regular rhythm, no murmur [] Lungs & Thorax: Bilateral breath sounds clear to auscultation [] Abdomen: Bowel sounds normal, soft, no tenderness, no masses, no pulsatile masses. [] Skin: Warm, dry, no erythema, no rash. [] Back: No tenderness, no CVA tenderness. [] Extremities: No tenderness, no cyanosis, no clubbing, ROM intact, no edema. [] Neurologic: Alert and oriented X 3, normal motor function, normal sensory function, no focal deficits noted. [] Psychologic: Affect normal, judgement normal, mood normal. [] Current Patient Data Vital Signs Vital Signs Date Time Temp Pulse Resp B/P (MAP) Pulse Ox O2 Delivery O2 Flow Rate FiO2 10/04/18 18:00 99.6 104 20 113/74 (87) 97 Room Air 99.6 Lab Values Laboratory Tests Test 10/04/18 17:20 10/04/18 17:59 10/04/18 19:12 Urine Collection Type Unknown Urine Color Yellow Urine Clarity Clear Urine pH 5.5 Urine Specific [place] 1.015 Urine Protein Negative mg/dL (NEG-TRACE) Urine Glucose (UA) Negative mg/dL (NEG) Urine Ketones (Stick) Negative mg/dL (NEG) Urine Blood Small (NEG) Urine Nitrite Negative (NEG) Urine Bilirubin Negative (NEG) Urine Urobilinogen Dipstick 0.2 mg/dL (0.2 mg/dL) Urine Leukocyte Esterase Negative (NEG) Urine RBC 3-5 /HPF (0-2) Urine WBC 1-4 /HPF (0-4) Urine Squamous Epithelial Cells Few /LPF Urine Bacteria Moderate /HPF (0-FEW) Urine Mucus Mod /LPF White Blood Count 1.5 x10^3/uL (4.0-11.0) *L Red Blood Count 3.95 x10^6/uL (3.50-5.40) Hemoglobin 12.4 g/dL (12.0-15.5) Hematocrit 35.9 % (36.0-47.0) L Mean Corpuscular Volume 91 fL (79-100) Mean Corpuscular Hemoglobin 32 pg (25-35) Mean Corpuscular Hemoglobin Concent 35 g/dL (31-37) Red Cell Distribution Width 13.3 % (11.5-14.5) Platelet Count 152 x10^3/uL (140-400) Neutrophils (%) (Auto) 72 % (31-73) Lymphocytes (%) (Auto) 13 % (24-48) L Monocytes (%) (Auto) 14 % (0-9) H Eosinophils (%) (Auto) 0 % (0-3) Basophils (%) (Auto) 1 % (0-3) Neutrophils # (Auto) 1.1 x10^3uL (1.8-7.7) L Lymphocytes # (Auto) 0.2 x10^3/uL (1.0-4.8) L Monocytes # (Auto) 0.2 x10^3/uL (0.0-1.1) Eosinophils # (Auto) 0.0 x10^3/uL (0.0-0.7) Basophils # (Auto) 0.0 x10^3/uL (0.0-0.2) Segmented Neutrophils % 53 % (35-66) Band Neutrophils % 17 % (0-9) H Lymphocytes % 10 % (24-48) L Monocytes % 17 % (0-10) H Basophils % 1 % (0-3) Metamyelocytes % 1 % (0-0) H Myelocytes % 1 % (0-0) H Toxic Granulation Marked Dohle Bodies Mod Platelet Estimate Adequate (ADEQUATE) Prothrombin Time 12.4 SEC (11.7-14.0) Prothrombin Time INR 1.0 (0.8-1.1) Maternal Serum HCG Beta Subunit < 1 mIU/mL (0-5) Sodium Level 135 mmol/L (136-145) L Potassium Level 3.9 mmol/L (3.5-5.1) Chloride Level 97 mmol/L (98-107) L Carbon Dioxide Level 28 mmol/L (21-32) Anion Gap 10 (6-14) Blood Urea Nitrogen 9 mg/dL (7-20) Creatinine 0.7 mg/dL (0.6-1.0) Estimated GFR (Cockcroft-Gault) 92.2 BUN/Creatinine Ratio 13 (6-20) Glucose Level 106 mg/dL (70-99) H Lactic Acid Level 1.3 mmol/L (0.4-2.0) Calcium Level 9.2 mg/dL (8.5-10.1) Total Bilirubin 0.2 mg/dL (0.2-1.0) Aspartate Amino Transferase (AST) 23 U/L (15-37) Alanine Aminotransferase (ALT) 123 U/L (14-59) H Alkaline Phosphatase 132 U/L (46-116) H Total Protein 7.0 g/dL (6.4-8.2) Albumin 3.2 g/dL (3.4-5.0) L Albumin/Globulin Ratio 0.8 (1.0-1.7) L Lipase 45 U/L (73-393) L Procalcitonin 0.44 ng/mL (0.00-0.10) H Influenza Type A Antigen Negative (NEGATIVE) Influenza Type B Antigen Negative (NEGATIVE) Laboratory Tests 10/04/18 17:59 Laboratory Tests 10/04/18 17:59 EKG EKG [] Radiology/Procedures Radiology/Procedures [] Impressions: IMPRESSION: 1. Mild prominence of the bilateral extrarenal pelvis. 2. No definite evidence of bowel obstruction. Electronically signed by: El Nicole MD (10/04/2018 8:12 PM) [facility] FINDINGS: A frontal view of the chest is obtained. There is no infiltrate, pleural effusion or pneumothorax. The heart is normal in size. There is a port catheter with the tip in the superior vena cava. IMPRESSION: No acute pulmonary finding. Electronically signed by: Marcela Becker MD (10/04/2018 7:32 PM) [facility] Course & Med Decision Making Course & Med Decision Making Pertinent Labs and Imaging studies reviewed. (See chart for details) []d/w eulalio. Reviewed the ANC of 1100 the fever at home of 101 otherwise reassuring lab work. He states with a stable patient in this ANC number it would be reasonable to try outpatient therapy with either Levaquin or Augmentin as long as the patient is reliable and can follow-up. In summary this is a 43-year-old female with history of breast cancer who is on chemotherapy last dose 7 days ago presenting with fever to 1012 days associated with some chills blood pressure is normal in the emergency room lab workup was essentially unremarkable mild elevation of ALT we did do a CT abdomen and pelvis abundance of caution and this was negative acute noted the urinalysis I do not think that this is a UTI nevertheless patient will be given prophylactic Levaquin anyway as per the above recommendation I did tell her about the importance of coming back here for increasing weakness or persistent symptoms otherwise call Dr. Sepulveda tomorrow to discuss when to recheck the absolute neutrophil count. She is agreeable to plan a flu swab was also negative she is given IV fluids in the emergency room and was much better at the time of discharge. Dragon Disclaimer Dragon Disclaimer This electronic medical record was generated, in whole or in part, using a voice recognition dictation system. Departure Departure Impression: Primary Impression: Fever Disposition: 01 HOME, SELF-CARE Condition: STABLE Patient Instructions: Fever, Adult, [id number] Additional Instructions: return if you have recurrent fever 100.5, and call dr sepulveda to discuss repeat ANC count in the next 48 hours. Scripts Levofloxacin (LEVAQUIN) 750 Mg Tablet 1 TAB PO DAILY, #7 TAB Prov: HODAN GILMAN MD 10/04/18 HODAN GILMAN MD Oct 04, 2018 20:55
== END 2018-10-04 20:51 | disposition home or self-care (01) ==
LOC: ER 16:38
DX: R50.9 Fever, unspecified (principal); Z85.3 Personal history of malignant neoplasm of breast
CPT/HCPCS: 36415; 71045; 74177; 80053; 81001; 83605; 83690; 84145; 84702; 85007; 85025; 85610; 87040; 87086; 87804; 96374; 99284; J2405; J7030; Q9967

== ENCOUNTER → 2018-10-25 | Outpatient (CLI) | payer OTHER ==
[2018-10-04 19:15] VITALS: BP 107/66
[~2018-10-25] MED LIST changes: +CANN100S PO; +DULO20CA PO; +LEVO750T31 PO; +VENL37.5 PO
--- NOTE | 2018-10-25 12:48 | RAD ---
Right upper extremity venous duplex study 10/25/2018 12:43 PM Clinical History: DX: Tenderness and "Lump" per PT Superior to port site IMP: Rigt arm negative for DVT-Port Line is seen at area of "Lump" per pt-No fluid collection or masses seen around port Technique: Using a combination of real time ultrasound imaging and color-flow and pulse Doppler imaging techniques, including spectral analysis, graded compression and augmentation, duplex evaluation of the deep venous system of the right lower extremity was performed. Multiple images were obtained. Findings: There is no sonographic evidence of deep venous thrombosis involving the visualized deep venous structures of the right upper extremity. Limited ultrasound of the right chest and the area of the port reservoir demonstrates no gross abnormality. Impression: No evidence of deep venous thrombosis involving the right upper extremity Electronically signed by: Adeel Lopez MD (10/25/2018 12:44 PM) [email or web address]
== END | disposition home or self-care (01) ==
LOC: US 11:25
PROVIDERS: ATTEND Internal Medicine Hematology & Oncology
DX: R22.31 Localized swelling, mass and lump, right upper limb (principal); Z85.3 Personal history of malignant neoplasm of breast
CPT/HCPCS: 93971

== ENCOUNTER → 2018-12-05 | Outpatient (CLI) | payer OTHER ==
[~2018-12-05] MED LIST changes: -DULO20CA PO
--- NOTE | 2018-12-05 12:19 | RAD ---
EXAM: Chest, 2 views. HISTORY: Breast cancer. Shortness of air. COMPARISON: 10/04/2018. FINDINGS: 2 views the chest are obtained. There is no infiltrate, pleural effusion or pneumothorax. The heart is normal in size. There is a right port catheter with the tip in the superior vena cava. IMPRESSION: No acute pulmonary finding. Electronically signed by: Marcela Becker MD (12/05/2018 12:16 PM) [facility]
== END | disposition home or self-care (01) ==
LOC: RAD 11:15
PROVIDERS: ATTEND Nurse Practitioner Adult Health
DX: C50.412 Malignant neoplasm of upper-outer quadrant of left female breast (principal); R07.89 Other chest pain; Z17.1 Estrogen receptor negative status [ER-]
CPT/HCPCS: 71046

== ENCOUNTER → 2018-12-07 | Outpatient (CLI) | payer OTHER ==
--- NOTE | 2018-12-07 17:27 | RAD ---
Examination: Whole body bone scan HISTORY: History of breast cancers, staging COMPARISON: 10/04/2018 CT abdomen pelvis FINDINGS: No evidence of focal radiotracer uptake identified in the visualized skeleton. Physiologic radiotracer uptake identified in the bilateral kidneys and the urinary bladder. IMPRESSION: No evidence of osteoblastic skeletal metastasis. Electronically signed by: Nabil Rodrigues MD (12/07/2018 5:24 PM) [email or web address]
== END | disposition home or self-care (01) ==
LOC: NM 09:30
PROVIDERS: ATTEND Internal Medicine Hematology & Oncology
DX: C50.412 Malignant neoplasm of upper-outer quadrant of left female breast (principal); G89.29 Other chronic pain; Z17.1 Estrogen receptor negative status [ER-]
CPT/HCPCS: 78306; 96374; A9503

== ENCOUNTER → 2019-04-24 | Outpatient (CLI) | payer OTHER ==
[~2019-04-24] MED LIST changes: +DULO20CA PO
--- NOTE | 2019-04-25 09:30 | RAD ---
DATE: 04/25/2019. EXAM: MAMMO JAVED NOÉ BILAT HISTORY: History of left breast cancer status post lumpectomy. COMPARISON: Previous mammogram from 2017. This study was interpreted with the benefit of Computerized Aided Detection (CAD). FINDINGS: Breast Density: HETERO The breast parenchyma Is heterogeneously dense, which could reduce sensitivity of mammography. Breast parenchyma level C. Postoperative changes from left breast lumpectomy noted. There is left breast skin thickening likely secondary to radiation therapy. No suspicious calcifications are seen. 5 mm round mass is seen in the right breast at approximately 3.6 cm from the nipple on cc view just lateral to the posterior nipple line. Couple of asymmetries are seen in the 12:00 position in the right breast. IMPRESSION: Right breast abnormality. Please see ultrasound from the same day. BI-RADS CATEGORY: 3 PROBABLE BENIGN FINDING(S-SHORT INTERVAL FOLLOW-UP SUGGESTED RECOMMENDED FOLLOW-UP: 3M 3 MONTH FOLLOW-UP. Ultrasound of the right breast recommended. PQRS compliance statement: Patient information was entered into a reminder system with a target due date for the next mammogram. Mammography is a sensitive method for finding small breast cancers, but it does not detect them all and is not a substitute for careful clinical examination. A negative mammogram does not negate a clinically suspicious finding and should not result in delay in biopsying a clinically suspicious abnormality. "Our facility is accredited by the [employer] Mammography Program."
== END | disposition home or self-care (01) ==
LOC: MAMMO 14:17
PROVIDERS: ATTEND Radiology Radiation Oncology
DX: N63.10 Unspecified lump in the right breast, unspecified quadrant (principal); N64.89 Other specified disorders of breast; Z85.3 Personal history of malignant neoplasm of breast; Z92.3 Personal history of irradiation
CPT/HCPCS: 77066; G0279; 77062

== ENCOUNTER → 2019-04-25 | Outpatient (CLI) | payer OTHER ==
--- NOTE | 2019-04-25 09:46 | RAD ---
Indication: History of left breast cancer. Abnormality seen on the right breast mammogram. COMPARISON: Same day diagnostic mammogram. technique: Limited right breast ultrasound findings: At 1:30 position approximately 4 cm from the nipple there is a small hypoechoic oval-shaped mass measuring 0.5 x 0 point for by 0.3 cm without internal vascularity. At 1:30 position approximately 5.5 cm from the nipple there is a 0.5 x 0.6 x 0.5 cm round anechoic lesion with questionable internal debris without vascularity. At 12:00 position proximally 4 cm from the nipple there is a round hypoechoic well-circumscribed lesion measuring 0.4 x 0.7 x 0.5 cm without internal vascularity. Mildly dilated duct is seen at 7:00 position approximately 1 cm from the nipple. IMPRESSION: Multiple right breast abnormalities as described above demonstrating no overtly worrisome features. These may be minimally complicated cysts. BI-RADS 3: Probably benign. Follow-up ultrasound in 3 months recommended. Electronically signed by: Keyon Thomason DO (04/25/2019 9:42 AM) [facility]
== END | disposition home or self-care (01) ==
LOC: US 08:28
PROVIDERS: ATTEND Radiology Radiation Oncology
DX: N63.12 Unspecified lump in the right breast, upper inner quadrant (principal); N64.89 Other specified disorders of breast; Z85.3 Personal history of malignant neoplasm of breast
CPT/HCPCS: 76641

== ENCOUNTER → 2019-07-26 | Outpatient (CLI) | payer OTHER ==
--- NOTE | 2019-07-26 14:49 | RAD ---
Examination: BREAST RIGHT History: Abnormal mammogram and breast ultrasound Comparison/Correlation: 04/24/2019 bilateral diagnostic mammogram, 04/25/2019 right breast ultrasound Findings: Right breast ultrasound exam was performed. Multiple cystic structures are again identified with internal echoes. At the 9:30 region, there is a 0.3 cm x 0.25 cm x 0.21 cm cyst 3 cm from the nipple. This has decreased in the interval. At the 12:00 region 4 cm from the nipple, there is a 0.5 cm x 0 point for 7 cm x 0.43 cm cyst which has decreased in the interval. At the 1:00 region 5.5 cm from the nipple, there is a 0.5 cm x 0.5 cm x 0.4 cm diameter cyst. At the 1:30 region 4 cm from the nipple, there is a 0.32 cm x 0.36 cm x 1.14 cm cyst which has mildly decreased. Ductal ectasia at the 7:00 retroareolar region noted. No abnormal flow on color Doppler imaging of the various complicated cystic structures. Impression: BI-RADS Category 3-probably benign. Multiple cystic structures are present and appear stable or decreased in the interval. Diagnostic mammographic evaluation of the time of annual screening is recommended. Ultrasound may be needed at that time. Electronically signed by: Austin Gtz MD (07/26/2019 2:46 PM) [facility]
== END | disposition home or self-care (01) ==
LOC: US 15:10
PROVIDERS: ATTEND Radiology Radiation Oncology
DX: N60.02 Solitary cyst of left breast (principal); N60.41 Mammary duct ectasia of right breast
CPT/HCPCS: 76641

== ENCOUNTER → 2020-04-16 | Outpatient (CLI) | payer OTHER ==
--- NOTE | 2020-04-16 14:30 | RAD ---
EXAM: 1. Bilateral digital 3-D diagnostic mammography. 2. Right breast ultrasound. HISTORY: Follow-up right breast lesions. Personal history of left breast cancer status post BCT. TECHNIQUE: Bilateral full field digital images were obtained in CC and MLO projections with tomosynthesis. Computer-aided detection was applied. Sonography of the right breast was also performed. COMPARISON: 04/24/2019, 04/25/2019, 07/26/2019. COMPOSITION: C. The breasts are heterogeneously dense, which may obscure small masses. FINDINGS: Post breast conservation therapy changes are again noted superolaterally on the left. There is no suspicious finding on the left. On the right, previously noted circumscribed/obscured nodules are stable to slightly increased in size. The largest slightly laterally on the right CC view appears superior on the MLO projection and measures 5.6 x 5.0 mm mammographically. 2 other smaller nodules project within the central parenchyma and are not clearly changed. There are no clearly suspicious masses, microcalcifications or architectural distortion. The parenchymal pattern is stable. Scattered calcifications are benign. Sonography of the right breast was performed at the sites of prior concern. A hypoechoic oval nodule at the 12:00 position 4 cm from the nipple measures 5 x 5 x 3 mm. There is no internal perfusion on Doppler. The previously noted lesions at the 1:30 position are no longer identified. At the 9:30 position 3 cm from the nipple, another hypoechoic oval nodule measures 5 x 5 mm. Images of the right nasal reveal no abnormal appearing lymph nodes. BI-RADS CATEGORY 3: Probably Benign. RECOMMENDATION: 1. Previously noted nodules most likely reflect benign complicated cysts. Diagnostic mammography and sonography is recommended to confirm two-year stability when the patient returns in April 2021. Electronically signed by: Jonnie Ortiz MD (04/16/2020 2:27 PM) [id number]
== END | disposition home or self-care (01) ==
LOC: MAMMO 12:59
PROVIDERS: ATTEND Family Medicine
DX: R92.1 Mammographic calcification found on diagnostic imaging of breast (principal); N63.11 Unspecified lump in the right breast, upper outer quadrant; Z85.3 Personal history of malignant neoplasm of breast
CPT/HCPCS: 76641; 77066; G0279; 77062

== ENCOUNTER → 2021-06-15 | Outpatient (CLI) | payer OTHER ==
[~2021-06-15] MED LIST changes: +ACYC-12 PO; -ACYC400T PO
--- NOTE | 2021-06-15 13:48 | RAD ---
EXAMINATION: Bilateral diagnostic mammogram and right breast ultrasound History: History of left breast cancer in 2018 post lumpectomy. Six-month follow-up of probably benig n right breast masses. Comparison: 04/16/2020, 04/25/2019, 04/24/2019 Technique: Bilateral digital diagnostic mammogram views were obtained. CAD was utilized. 3-D tomosyn thesis images were acquired. Subsequent ultrasound of the right breast in area of concern was perform ed. Findings: Breast Tissue Density B : There are scattered areas of fibroglandular density. Surgical changes of lumpectomy in the upper outer left breast are stable. No suspicious mass in the l eft breast. 3 circumscribed or partially obscured masses in the right breast middle depth measuring a pproximately 4 to 5 mm each are unchanged by mammogram. There are no calcifications or suspicious arc hitectural distortion in either breast. Ultrasound of the right breast in area of concern was performed: At 12:00, 4 cm from the nipple, there is a 4 mm circumscribed hypoechoic mass with a few internal ech oes or septations, unchanged. At 1:00, 5.5 cm the nipple, there is a 5 mm circumscribed anechoic cyst, unchanged. At 9:30, 3 cm from the nipple, there is a 5 mm circumscribed hypoechoic mass with a few internal echo es or septations, unchanged. IMPRESSION: 1. No change or evidence of malignancy. 2. Unchanged probably benign circumscribed hypoechoic masses in the right breast. These have been sta ble for over 2 years and require no further surveillance. 3. Recommend annual bilateral mammogram in 12 months. BI-RADS category 2: Benign findings. The images were reviewed with computer aided detection. Patient information is entered into the reminder system with a target due date for the next screening mammogram. Mammography is the most sensitive method for finding small breast cancers, but it does not detect the m all and is not a substitute for careful clinical examination. A negative mammogram does not negate a clinically suspicious finding and should not result in delay in biopsying a clinically suspicious a bnormality. "Our facility is accredited by the [employer] Mammography Program." Electronically signed by: Torrie Squires MD (06/15/2021 1:46 PM) [id number]
== END ==
LOC: MAMMO 09:38
PROVIDERS: ATTEND Family Medicine
DX: N63.11 Unspecified lump in the right breast, upper outer quadrant (principal); N63.12 Unspecified lump in the right breast, upper inner quadrant; Z85.3 Personal history of malignant neoplasm of breast
CPT/HCPCS: 76641; 77066; G0279; 77062